=== PATIENT | male | born 1950 | race Caucasian/White ===

== ENCOUNTER 2022-02-03 08:44 | Day surgery (SDC) | payer OTHER ==
[2022-01-29 15:27] VITALS: BMI 20.7
[2022-02-03 09:50] VITALS: TEMP 97
[2022-02-03 10:24] VITALS: BP 139/71; PULSE 72
== END 2022-02-03 10:54 | disposition home or self-care (01) ==
LOC: FASU-ENDO 08:44
PROVIDERS: ATTEND Internal Medicine Gastroenterology
PROC: 0DBP8ZX Excision of Rectum, Via Natural or Artificial Opening Endoscopic, Diagnostic (ICD-10-PCS; principal; 2022-02-03 09:23)
DX: Z12.11 Encounter for screening for malignant neoplasm of colon (principal); Z86.010 Personal history of colon polyps; K62.1 Rectal polyp
CPT/HCPCS: 88305-TC